=== PATIENT | female | born 1985 | race Caucasian/White ===

== ENCOUNTER 2020-11-19 19:31 | Emergency (ER) | payer SELFPAY ==
[~2020-11-19] VITALS: Ht 175.3 cm; Wt 97.5 kg
[2020-11-19 19:40] VITALS: BP 118/87
--- NOTE | 2020-11-19 19:42 | NUR ---
To ED bed 01
--- NOTE | 2020-11-19 21:14 | NUR ---
PATIENT LEFT WITHOUT BEING SEEN BY DR. KENNY. NO FURTHER CARE PROVIDED FOR PATIENT.
== END 2020-11-19 21:14 | disposition left against medical advice (07) ==
LOC: MED 19:31
DX: L03.012 Cellulitis of left finger (principal); Z53.21 Procedure and treatment not carried out due to patient leaving prior to being seen by health care provider; Z48.00 Encounter for change or removal of nonsurgical wound dressing

== ENCOUNTER 2021-07-16 01:44 | Emergency (ER) | payer SELFPAY ==
[~2021-07-16] VITALS: Ht 170.2 cm; Wt 104.3 kg
[2021-07-16 02:09] VITALS: BP 136/85
--- NOTE | 2021-07-16 02:12 | NUR ---
TO LOBBY A/W BED AMBULATORY
--- NOTE | 2021-07-16 02:30 | NUR ---
Kt del real in EDM - 07/16/21 at 0718 by GILMA CALLED TO BED SEEN BY FELICIANO, NO RESPONSE .PATIENT LEFT WITHOUT BEING SEEN BY DR. GRAYSON. NO FURTHER CARE PROVIDED FOR PATIENT.
--- NOTE | 2021-07-16 02:30 | NUR ---
CALLED TO BE SEEN BY ERMD, NO RESPONSE PATIENT LEFT WITHOUT BEING SEEN BY DR. GRAYSON. NO FURTHER CARE PROVIDED FOR PATIENT.
--- NOTE | 2021-07-16 02:35 | NUR ---
CALLED FOR THE SECOND TIME , NO RESPONSE
--- NOTE | 2021-07-16 02:40 | NUR ---
CALLED FOR THE THIRD TIME , NO ANSWER, CALL VIA TELEPHONE
[2021-07-16] MEDS ORDERED: KETOROLAC 30 MG/ML VIAL IVP ONE (02:55)
[2021-07-16] MEDS ORDERED: NACL 0.9% 1,000 ML IV SCH (02:55)
[2021-07-16] MEDS ORDERED: ONDANSETRON 4 MG/2 ML VIAL IVP ONE (02:55)
== END 2021-07-16 02:30 | disposition home or self-care (01) ==
LOC: MED 01:44
DX: R10.30 Lower abdominal pain, unspecified (principal); Z53.21 Procedure and treatment not carried out due to patient leaving prior to being seen by health care provider